=== PATIENT | male | born 1945 | race Caucasian/White ===

== ENCOUNTER 2017-06-14 09:35 | Inpatient (IN) | payer MEDICARE ==
[~2017-06-14] VITALS: Ht 182.9 cm; Wt 88.0 kg
[~2017-06-14 09:35] MED LIST: ALDACTONE25 M1 PO; ALPHA LIPOIC A PO; AUGMENTIN 875-1 EAC2 PO; BISCOLAX10 MG PR; CELEXA20 M2 PO; COLACE100 M1 PO; COUMADIN3 M1 PO; COUMADIN4 M1 PO; DEMADEX20 M1 PO; FEOSOL325 M1 PO; FLOMAX0.4 M1 PO; GLUCOPHAGE850 M1 PO; LANOXIN125 MC3 PO; LOVENOX100 MG/1 M SC; MILK OF MAGNESIA PO; NEURONTIN300 M1 PO; NIASPAN500 M1 PO; NITROGLYCERIN0.4 M2 SL; POLYETHYLENE G255 G1 PO; PROTONIX40 M2 PO; TYLENOL325 M2 PO; ULTRAM50 M1 PO; VITAMIN C1000 M1 PO; VITAMIN D32000 UNI3 PO; ZYLOPRIM100 M1 PO
[2017-06-14] MEDS ORDERED: NORVASC5 M2 PO (10:25)
[2017-06-14] MEDS ORDERED: MAGNESIUM OXID400 M1 PO (10:29)
[2017-06-14] MEDS ORDERED: LOVENOX80 MG/0.1 SC (10:32)
[2017-06-14] MEDS ORDERED: XANAX0.25 M1 PO (10:35)
[2017-06-14] MEDS ORDERED: AYR SALINE NASA14 GM TOP (10:36)
[2017-06-14 13:56] LABS: BASO % 0.7 % (0-2); EOSINOPHIL ABSOLUTE COUNT 0.3 tho/cmm (0.0-0.7); HGB-HEMOGLOBIN 8.4 gm/dl (13.5-17.0); LYMPH % 6.6 % (20-45); LYMPH ABSOLUTE COUNT 0.4 tho/cmm (0.8-4.5); MCH (MEAN CORPUSCULAR HGB) 30.1 pg (28.0-32.0); MCHC MEAN CORPUSCULAR HGB CONC 32.3 % (32.0-36.0); MCV (MEAN CELL VOLUME) 93.2 fl (82.0-96.0); MEAN PLATELET VOLUME 8.6 cmc (9.4-12.4); MONO % 13.4 % (0-12); MONOCYTE ABSOLUTE COUNT 0.8 tho/cmm (0.0-1.2); NEUTROPHIL ABSOLUTE COUNT 4.3 tho/cmm (1.6-8.0); NEUTROPHIL-AUTOMATED 4.3 tho/cmm (1.6-8.0); NEUTROPHILS % 74.3 % (40-80); PLATELET COUNT 249 tho/cmm (150-450); RED BLOOD COUNT 2.79 mil/cmm (4.40-5.70); RED CELL DISTRIBUTION WIDTH 17.6 % (12.4-16.4); WHITE BLOOD COUNT 5.8 tho/cmm (4.0-10.0)
[2017-06-14 14:00] LABS: INR 2.3 INR (0.9-1.1); PROTHROMBIN TIME 27.3 SECONDS (9.0-13.6)
[2017-06-14 14:09] LABS: MAGNESIUM 1.8 mg/dl (1.8-2.6)
[2017-06-14 18:30] LABS: ALB/GLOB RATIO 0.7 (0.8-2.0); ALBUMIN 2.4 g/dl (3.5-5.0); ALKALINE PHOSPHATASE 107 U/L (33-138); ALT/SGPT 13 U/L (12-78); ANION GAP 9 mmol/L (0-20); AST/SGOT 17 U/L (10-40); BILIRUBIN,TOTAL 0.3 mg/dl (0.0-1.5); BLOOD UREA NITROGEN 32 mg/dl (6-24); CALCIUM 7.8 mg/dl (8.5-10.5); CARBON DIOXIDE-VENOUS 29 mmol/L (22-32); CHLORIDE 98 mmol/l (96-110); CREATININE 0.81 mg/dl (0.60-1.30); GLUCOSE 120 mg/dL (70-110); SODIUM 132 mmol/L (135-145); eGFR VALUE FOR BLACK >90 mL/Min
[2017-06-14 20:19] LABS: URINE BILIRUBIN NEGATIVE (NEG); URINE BLOOD NEGATIVE (NEG); URINE GLUCOSE (UA) NEGATIVE (NEG); URINE KETONE NEGATIVE (NEG); URINE LEUKOCYTE ESTERASE NEGATIVE (NEG); URINE NITRITE NEGATIVE (NEG); URINE PROTEIN NEGATIVE (NEG); URINE SPECIFIC GRAVITY 1.005 (1.003-1.030)
[2017-06-14 20:20] LABS: URINE APPEARANCE CLEAR; URINE COLOR PALE YELLOW
[2017-06-15 05:15] LABS: BASO % 0.8 % (0-2); EOS % 5.1 % (0-7); EOSINOPHIL ABSOLUTE COUNT 0.3 tho/cmm (0.0-0.7); IMMATURE GRANULOCYTES ABSOLUTE 0.02 tho/cmm (0-0.03); IMMATURE GRANULOCYTES PERCENT 0.4 % (0-0.3); LYMPH % 5.9 % (20-45); LYMPH ABSOLUTE COUNT 0.3 tho/cmm (0.8-4.5); MCH (MEAN CORPUSCULAR HGB) 30.1 pg (28.0-32.0); MEAN PLATELET VOLUME 9.2 cmc (9.4-12.4); MONO % 16.1 % (0-12); MONOCYTE ABSOLUTE COUNT 0.9 tho/cmm (0.0-1.2); NEUTROPHIL ABSOLUTE COUNT 3.8 tho/cmm (1.6-8.0); NEUTROPHIL-AUTOMATED 3.8 tho/cmm (1.6-8.0); NEUTROPHILS % 71.7 % (40-80); PLATELET COUNT 288 tho/cmm (150-450); RED BLOOD COUNT 2.66 mil/cmm (4.40-5.70); RED CELL DISTRIBUTION WIDTH 17.7 % (12.4-16.4); WHITE BLOOD COUNT 5.3 tho/cmm (4.0-10.0)
[2017-06-15 05:20] LABS: INR 1.8 INR (0.9-1.1); PROTHROMBIN TIME 21.4 SECONDS (9.0-13.6)
[2017-06-15 05:35] LABS: ALB/GLOB RATIO 0.7 (0.8-2.0); ALBUMIN 2.3 g/dl (3.5-5.0); ALKALINE PHOSPHATASE 107 U/L (33-138); ALT/SGPT 15 U/L (12-78); ANION GAP 9 mmol/L (0-20); AST/SGOT 17 U/L (10-40); BILIRUBIN,TOTAL 0.4 mg/dl (0.0-1.5); BLOOD UREA NITROGEN 26 mg/dl (6-24); CALCIUM 8.2 mg/dl (8.5-10.5); CARBON DIOXIDE-VENOUS 30 mmol/L (22-32); CHLORIDE 102 mmol/l (96-110); CREATININE 0.67 mg/dl (0.60-1.30); GLUCOSE 93 mg/dL (70-110); MAGNESIUM 1.8 mg/dl (1.8-2.6); POTASSIUM 3.8 mmol/L (3.7-5.1); SODIUM 137 mmol/L (135-145); eGFR VALUE FOR BLACK >90 mL/Min
--- NOTE | 2017-06-15 17:03 | NUR ---
[facility] BSN STUDENT ASSIGNED TO THIS PT. Rosemary DAWKINS RN REVIEWED ALL CHARTING AND CHANGED WHAT WAS NECESSARY AND AGREES WITH ALL DOCUMENTATION.
[2017-06-16 03:18] LABS: INR 1.6 INR (0.9-1.1); PROTHROMBIN TIME 18.8 SECONDS (9.0-13.6)
[2017-06-16 03:23] LABS: BASO % 1.2 % (0-2); BASO ABSOLUTE COUNT 0.1 tho/cmm (0.0-0.2); EOS % 5.3 % (0-7); EOSINOPHIL ABSOLUTE COUNT 0.3 tho/cmm (0.0-0.7); HCT-HEMATOCRIT 24.1 % (36.0-53.5); HGB-HEMOGLOBIN 7.7 gm/dl (13.5-17.0); IMMATURE GRANULOCYTES ABSOLUTE 0.01 tho/cmm (0-0.03); IMMATURE GRANULOCYTES PERCENT 0.2 % (0-0.3); LYMPH % 9.6 % (20-45); LYMPH ABSOLUTE COUNT 0.5 tho/cmm (0.8-4.5); MCH (MEAN CORPUSCULAR HGB) 29.8 pg (28.0-32.0); MCV (MEAN CELL VOLUME) 93.4 fl (82.0-96.0); MEAN PLATELET VOLUME 9.1 cmc (9.4-12.4); MONO % 16.6 % (0-12); MONOCYTE ABSOLUTE COUNT 0.8 tho/cmm (0.0-1.2); NEUTROPHIL ABSOLUTE COUNT 3.3 tho/cmm (1.6-8.0); NEUTROPHIL-AUTOMATED 3.3 tho/cmm (1.6-8.0); NEUTROPHILS % 67.1 % (40-80); PLATELET COUNT 260 tho/cmm (150-450); RED BLOOD COUNT 2.58 mil/cmm (4.40-5.70); RED CELL DISTRIBUTION WIDTH 17.3 % (12.4-16.4); WHITE BLOOD COUNT 4.9 tho/cmm (4.0-10.0)
[2017-06-16 17:55] LABS: BASO % 0.8 % (0-2); EOS % 3.5 % (0-7); EOSINOPHIL ABSOLUTE COUNT 0.2 tho/cmm (0.0-0.7); HCT-HEMATOCRIT 25.5 % (36.0-53.5); HGB-HEMOGLOBIN 8.1 gm/dl (13.5-17.0); IMMATURE GRANULOCYTES ABSOLUTE 0.01 tho/cmm (0-0.03); IMMATURE GRANULOCYTES PERCENT 0.2 % (0-0.3); LYMPH % 7.8 % (20-45); LYMPH ABSOLUTE COUNT 0.4 tho/cmm (0.8-4.5); MCH (MEAN CORPUSCULAR HGB) 29.8 pg (28.0-32.0); MCHC MEAN CORPUSCULAR HGB CONC 31.8 % (32.0-36.0); MCV (MEAN CELL VOLUME) 93.8 fl (82.0-96.0); MEAN PLATELET VOLUME 9.3 cmc (9.4-12.4); MONO % 13.5 % (0-12); MONOCYTE ABSOLUTE COUNT 0.7 tho/cmm (0.0-1.2); NEUTROPHIL ABSOLUTE COUNT 3.6 tho/cmm (1.6-8.0); NEUTROPHIL-AUTOMATED 3.6 tho/cmm (1.6-8.0); NEUTROPHILS % 74.2 % (40-80); PLATELET COUNT 276 tho/cmm (150-450); RED BLOOD COUNT 2.72 mil/cmm (4.40-5.70); RED CELL DISTRIBUTION WIDTH 17.3 % (12.4-16.4); WHITE BLOOD COUNT 4.9 tho/cmm (4.0-10.0)
[2017-06-17 06:40] LABS: BASO % 1.1 % (0-2); BASO ABSOLUTE COUNT 0.1 tho/cmm (0.0-0.2); EOS % 5.9 % (0-7); EOSINOPHIL ABSOLUTE COUNT 0.3 tho/cmm (0.0-0.7); HGB-HEMOGLOBIN 7.6 gm/dl (13.5-17.0); IMMATURE GRANULOCYTES ABSOLUTE 0.01 tho/cmm (0-0.03); IMMATURE GRANULOCYTES PERCENT 0.2 % (0-0.3); LYMPH % 8.9 % (20-45); LYMPH ABSOLUTE COUNT 0.4 tho/cmm (0.8-4.5); MCH (MEAN CORPUSCULAR HGB) 30.3 pg (28.0-32.0); MCHC MEAN CORPUSCULAR HGB CONC 32.3 % (32.0-36.0); MCV (MEAN CELL VOLUME) 93.6 fl (82.0-96.0); MEAN PLATELET VOLUME 9.1 cmc (9.4-12.4); MONO % 18.7 % (0-12); MONOCYTE ABSOLUTE COUNT 0.9 tho/cmm (0.0-1.2); NEUTROPHILS % 65.2 % (40-80); PLATELET COUNT 250 tho/cmm (150-450); RED BLOOD COUNT 2.51 mil/cmm (4.40-5.70); RED CELL DISTRIBUTION WIDTH 17.3 % (12.4-16.4); WHITE BLOOD COUNT 4.6 tho/cmm (4.0-10.0)
[2017-06-17 06:47] LABS: INR 1.5 INR (0.9-1.1); PROTHROMBIN TIME 18.4 SECONDS (9.0-13.6)
[2017-06-17 06:48] LABS: HCT-HEMATOCRIT 23.5 % (36.0-53.5)
[2017-06-17 06:58] LABS: ANION GAP 10 mmol/L (0-20); BLOOD UREA NITROGEN 16 mg/dl (6-24); CALCIUM 8.1 mg/dl (8.5-10.5); CARBON DIOXIDE-VENOUS 27 mmol/L (22-32); CHLORIDE 107 mmol/l (96-110); CREATININE 0.67 mg/dl (0.60-1.30); GLUCOSE 88 mg/dL (70-110); POTASSIUM 3.6 mmol/L (3.7-5.1); SODIUM 140 mmol/L (135-145); eGFR VALUE FOR BLACK >90 mL/Min
[2017-06-17] MEDS ORDERED: POTASSIUM CHLO10 ME2 PO (10:18)
== END 2017-06-17 20:00 | DRG 378 ==
LOC: PCUB 09:35
PROVIDERS: Internal Medicine; Specialist; ADMIT Internal Medicine Cardiovascular Disease
PROC: 5A09357 Assistance with Respiratory Ventilation, Less than 24 Consecutive Hours, Continuous Positive Airway Pressure (ICD-10-PCS; 2017-06-14)
PROC: 0W3P8ZZ Control Bleeding in Gastrointestinal Tract, Via Natural or Artificial Opening Endoscopic (ICD-10-PCS; principal; 2017-06-16)
PROC: 0DJD8ZZ Inspection of Lower Intestinal Tract, Via Natural or Artificial Opening Endoscopic (ICD-10-PCS; 2017-06-16)
DX: K55.21 Angiodysplasia of colon with hemorrhage (principal); D62 Acute posthemorrhagic anemia; Z95.811 Presence of heart assist device; E11.22 Type 2 diabetes mellitus with diabetic chronic kidney disease; I13.0 Hypertensive heart and chronic kidney disease with heart failure and stage 1 through stage 4 chronic kidney disease, or unspecified chronic kidney disease; I27.2 Other secondary pulmonary hypertension; I50.42 Chronic combined systolic (congestive) and diastolic (congestive) heart failure; D64.9 Anemia, unspecified; Z79.01 Long term (current) use of anticoagulants; I25.10 Atherosclerotic heart disease of native coronary artery without angina pectoris; Z95.1 Presence of aortocoronary bypass graft; N18.9 Chronic kidney disease, unspecified; Z79.84 Long term (current) use of oral hypoglycemic drugs; Z79.899 Other long term (current) drug therapy; Z87.891 Personal history of nicotine dependence; Z87.19 Personal history of other diseases of the digestive system; E78.5 Hyperlipidemia, unspecified; I73.9 Peripheral vascular disease, unspecified; I48.91 Unspecified atrial fibrillation; I27.81 Cor pulmonale (chronic); Z86.79 Personal history of other diseases of the circulatory system; Z85.51 Personal history of malignant neoplasm of bladder; Z95.828 Presence of other vascular implants and grafts
CPT/HCPCS: A9560; J1610; J1644; J1940; P9016